=== PATIENT | female | born 1985 | race American Indian/Alaskan Native ===

== ENCOUNTER 2021-11-14 19:30 | Emergency (ER) | payer MEDICAID ==
[2021-11-14 21:15] VITALS: BP 214/123
== END 2021-11-14 21:00 | disposition left against medical advice (07) ==
LOC: ED 19:30
DX: L02.91 Cutaneous abscess, unspecified (principal); Z53.21 Procedure and treatment not carried out due to patient leaving prior to being seen by health care provider